=== PATIENT | female | born 1970 | race Caucasian/White ===

== ENCOUNTER → 2017-07-30 | Outpatient (CLI) | payer MEDICARE, MEDICAID ==
[~2017-07-30] MED LIST: ESTRADIOL 1 MG T1 M1 PO; FLONASE 0.05%50 MCG NASAL; FLONASE 0.05%50 MCG NS; GLUCOPHAGE1000 MG PO; HUMALOG KW200 UNIT/1 SQ; HYDROCODONE-AP1 EAC6 PO; LAMOTRIGINE150 MG PO; LEVEMIR SUBQ; LEXAPRO20 MG PO; LIDODERM 5%1 PATC1 TRANSDERM; LIPITOR 20 MG T20 M1 PO; LORAZEPAM 2MG TA2 M1 PO; LYRICA; LYRICA 50 MG50 MG PO; LYRICA 75 MG CA75 MG PO; METFORMIN PO; NOVOLOG100 UNIT/1 SUBQ; OMEPRAZOLE20 MG PO; PROAIR HFA8.5 GM IH; THERAFLU COL245.5 ML PO; TRAMADOL 50 MG50 MG PO; TRAZODONE HCL50 MG PO; VITAMIN B-12500 MCG PO; VYTORIN 10-201 EACH PO; ZOFRAN ODT4 MG SUBLING; ZPAK PO
--- NOTE | 2017-08-04 08:02 | PAINCON ---
[address] [address] PAIN MANAGEMENT CONSULTATION Name: KIKO ENCISO Room: [facility] Treva#: [id number] Admission: 07/30/17 Attend Phys: Ying Cohen Discharge: Date of : 70 Report #: [id number] THIS REPORT FOR: //name// CC: Nain Hickman The patient is a 47-year-old female, seen last fall for cervical radicular symptoms, given a single epidural injection with excellent improvement of pain. The patient notes pain was 50% improved for several months, pain gradually began to recur. She has multiple comorbidities including some hip pain, "history of fibromyalgia," a seizure disorder, having been admitted to the hospital 04/01/2017 for" pseudoseizure." She recently got over respiratory virus (flu). Today, she notes pain is 7.5 on a VAS. Primary pain is in the neck, left shoulder and arm with paresthesia going into the fingers. She does have history of some rotator cuff tear in the left shoulder, but symptoms are compatible with prior cervical radiculopathy presentation. Physical exam shows 5 feet 2 inches, 175 pound female, BMI 32 kilograms per meter squared. Blood pressure is modestly elevated 154/94, pulse 95, respirations 16. Cervical range of motion is limited. Positive Lhermitte's. Pain going into the neck, left shoulder and arm. Objective strength is diminished on left compared to the right. Deltoid, biceps and triceps about 3/5 versus 4/5 on the right. Reviewed the MRI from 10/07/2016 noting straightening of the lordotic curve with mild broad left paramedian disk deforming the cord at C4-C5 with posterior ridging at C5-C6 and C6-C7. ASSESSMENT: Symptomatic cervical radiculopathy by clinical exam and history. RECOMMENDATION: Cervical epidural injection under fluoroscopy today. Follow up in 4 weeks for reevaluation. Cancel if doing well. PROCEDURE NOTE: Cervical epidural injection under fluoroscopy. PROCEDURE: Cervical epidural steroid injection under fluoroscopy. PROCEDURE NOTE: After written and informed consent was obtained including risk of dural puncture, spinal cord trauma, paralysis and increased pain, the patient was taken to the fluoroscopy suite and placed in the prone position, with appropriate abdominal bolstering, neck was flexed, palms under the thighs. Skin was prepped with ChloraPrep. Sterile draping was applied. Skin wheal with 1% Xylocaine was raised. A 22-gauge 3-1/2 inch epidural Tuohy needle was placed via a midline approach at the C7-T1 interspace, advanced under biplanar fluoroscopy using continuous loss of resistance. With appropriate loss of resistance at the expected depth on lateral view, the [place] [address] PAIN MANAGEMENT CONSULTATION Name: KIKO ENCISO [id number] Admission: 07/30/17 Attend Phys: Ying Cohen Discharge: Date of : 70 Report #: [id number] syringe was disconnected. A low volume extension tubing was connected to the needle and a 5 mL syringe. Negative aspiration for cerebrospinal fluid or blood was noted. A 1 mL of Omnipaque was injected which showed spread within the epidural space on biplanar fluoroscopy. This was followed with 80 mg of triamcinolone plus 1 mL of 1.5% preservative Xylocaine. Needle was withdrawn to the interspinous ligament, 0.5 mL of Xylocaine was used to flush the needle. The needle was then completely withdrawn. The area was cleansed. Band-Aid was applied. The patient was allowed to move off the procedure table and ambulated to the recovery room, monitored for an appropriate period of time, discharged in good and stable condition. <ELECTRONICALLY SIGNED> By: Kenney Hickman DO 08/04/17 0802 [id number] [id number] Hickman DO /nt
== END | disposition home or self-care (01) ==
LOC: M.PC 07-09 01:48
DX: M54.12 Radiculopathy, cervical region (principal); G89.29 Other chronic pain; G40.909 Epilepsy, unspecified, not intractable, without status epilepticus; M79.7 Fibromyalgia; Z88.0 Allergy status to penicillin; Z88.2 Allergy status to sulfonamides; Z98.890 Other specified postprocedural states; Z79.899 Other long term (current) drug therapy; Z79.891 Long term (current) use of opiate analgesic

== ENCOUNTER → 2017-08-27 | Outpatient (CLI) | payer MEDICARE, MEDICAID ==
--- NOTE | 2017-09-01 08:35 | PAINCON ---
[facility] [address] [place] [address] PAIN MANAGEMENT CONSULTATION Name: ZARIAKIKO Room: [facility] Tilley#: [id number] Admission: 08/27/17 Attend Phys: Ying Cohen Discharge: Date of : 70 Report #: [id number] THIS REPORT FOR: //name// CC: Nain Hickman DATE OF SERVICE: 08/27/2017 The patient is a very pleasant 47-year-old female, prior seen last fall for cervical radicular symptoms, had 2 epidural injections with overall improvement of pain. She [facility] to the [facility] on 07/30/2017. We did a single cervical epidural injection at that time with 60% improvement in baseline pain. Still has some pain in the neck, shoulder and arm with positive Lhermitte's sign, but does have some tenderness in the superior thoracic spine with a "catch" with cervical range of motion ASSESSMENT: Symptomatic cervical radiculopathy with clinical exam and history. RECOMMENDATION: Repeat cervical epidural injection today. She had 60% relief with initial injection, which is ongoing, but still has radicular symptoms that interfere with function. PROCEDURE: Cervical epidural injection under fluoroscopy. PROCEDURE NOTE: After written and informed consent was obtained including risk of dural puncture, spinal cord trauma, paralysis and increased pain, the patient was taken to the fluoroscopy suite and placed in the prone position, with appropriate abdominal bolstering, neck was flexed, palms under the thighs. Skin was prepped with ChloraPrep. Sterile draping was applied. Skin wheal with 1% Xylocaine was raised. A 22-gauge 3-1/2 inch epidural Tuohy needle was placed via a midline approach at the C7-T1 interspace, advanced under biplanar fluoroscopy using continuous loss of resistance. With appropriate loss of resistance at the expected depth on lateral view, the glass loss of resistance syringe was disconnected. A low volume extension tubing was connected to the needle and a 5 mL syringe. Negative aspiration for cerebrospinal fluid or blood was noted. A 1 mL of Omnipaque was injected which showed spread within the epidural space on biplanar fluoroscopy. This was followed with 80 mg of triamcinolone plus 1 mL of 1.5% preservative Xylocaine. Needle was withdrawn to the interspinous ligament, 0.5 mL of Xylocaine was used to flush the needle. The needle was then completely withdrawn. The area was cleansed. Band-Aid was applied. The patient was allowed to move off the procedure [place] [address] PAIN MANAGEMENT CONSULTATION Name: KIKO ENCISO Room: [facility] Tilley#: [id number] Admission: 08/27/17 Attend Phys: Ying Cohen Discharge: Date of : 70 Report #: [id number] to the recovery room, monitored for an appropriate period of time, discharged in good and stable condition. <ELECTRONICALLY SIGNED> By: Kenney Hickman DO 09/01/17 0835 [id number] Hickman DO /nt
== END | disposition home or self-care (01) ==
LOC: M.PC 03:02
DX: M54.12 Radiculopathy, cervical region (principal); G89.29 Other chronic pain; F44.5 Conversion disorder with seizures or convulsions; Z98.890 Other specified postprocedural states; Z88.0 Allergy status to penicillin; Z88.2 Allergy status to sulfonamides; Z79.899 Other long term (current) drug therapy; Z79.891 Long term (current) use of opiate analgesic

== ENCOUNTER → 2018-06-16 | Outpatient (CLI) | payer OTHER, MEDICAID | LOC: M.MRI 07:12 | DX: M75.81 Other shoulder lesions, right shoulder (principal); M19.011 Primary osteoarthritis, right shoulder; E11.9 Type 2 diabetes mellitus without complications; G44.201 Tension-type headache, unspecified, intractable; M54.2 Cervicalgia ==